=== PATIENT | male | born 1945 | race Caucasian/White ===

== ENCOUNTER 2017-08-17 13:29 | Outpatient (CLI) | payer OTHER ==
[2017-08-17 13:49] LABS: BASOPHILS % 0.5 (0.0-1.5); EOSINOPHILS % 3.1 % (0.0-6.8); MEAN CORPUSCULAR HEMOGLOBIN 28.5 pg (28.0-34.0); MEAN CORPUSCULAR VOLUME 84.8 fl (80.0-100.0); MONOCYTES % 6.3 % (0.0-11.0); NEUTROPHILS # 3.5 # k/uL (1.4-7.7)
[2017-08-17 14:24] LABS: eGFR (African) > 60; eGFR (Non-African) > 60
== END 2017-08-17 14:05 ==
LOC: LAB 13:29
PROVIDERS: ATTEND Internal Medicine
DX: E55.9 Vitamin D deficiency, unspecified (principal); E78.5 Hyperlipidemia, unspecified; Z79.01 Long term (current) use of anticoagulants
CPT/HCPCS: 36415; 80053; 80061; 82306; 85025

== ENCOUNTER 2017-12-06 10:14 | Outpatient (CLI) | payer OTHER | END 2017-12-06 10:15 | LOC: LAB 10:14 | PROVIDERS: ATTEND Family Medicine | DX: I63.9 Cerebral infarction, unspecified (principal) | CPT/HCPCS: 36415; 85610 ==

== ENCOUNTER 2018-01-12 10:48 | Outpatient (CLI) | payer OTHER | END 2018-01-12 10:50 | LOC: LAB 10:48 | PROVIDERS: ATTEND Family Medicine | DX: I63.9 Cerebral infarction, unspecified (principal) | CPT/HCPCS: 36415; 85610 ==

== ENCOUNTER 2018-02-22 10:07 | Outpatient (CLI) | payer OTHER | END 2018-02-22 10:10 | LOC: LAB 10:07 | PROVIDERS: ATTEND Family Medicine | DX: I63.9 Cerebral infarction, unspecified (principal) | CPT/HCPCS: 36415; 85610 ==

== ENCOUNTER 2018-04-06 09:13 | Outpatient (CLI) | payer OTHER | END 2018-04-06 09:15 | LOC: LAB 09:13 | PROVIDERS: ATTEND Family Medicine | DX: I63.9 Cerebral infarction, unspecified (principal) | CPT/HCPCS: 36415; 85610 ==

== ENCOUNTER 2018-05-22 11:35 | Outpatient (CLI) | payer OTHER | END 2018-05-22 11:40 | LOC: LAB 11:35 | PROVIDERS: ATTEND Family Medicine | DX: I63.9 Cerebral infarction, unspecified (principal) | CPT/HCPCS: 36415; 85610 ==

== ENCOUNTER 2018-06-19 12:00 | Outpatient (CLI) | payer OTHER | END 2018-06-19 12:02 | LOC: LAB 12:00 | PROVIDERS: ATTEND Family Medicine | DX: I63.9 Cerebral infarction, unspecified (principal) | CPT/HCPCS: 36415; 85610 ==

== ENCOUNTER 2018-08-04 09:21 | Outpatient (CLI) | payer OTHER ==
[2018-08-04 10:07] LABS: eGFR (Non-African) > 60
== END 2018-08-04 09:22 ==
LOC: LAB 09:21
PROVIDERS: ATTEND Family Medicine
DX: E78.5 Hyperlipidemia, unspecified (principal); Z00.00 Encounter for general adult medical examination without abnormal findings; I63.9 Cerebral infarction, unspecified; Z86.73 Personal history of transient ischemic attack (TIA), and cerebral infarction without residual deficits
CPT/HCPCS: 36415; 80053; 80061; 85610

== ENCOUNTER 2018-08-07 10:20 | Outpatient (CLI) | payer OTHER | END 2018-08-07 10:21 | LOC: LAB 10:20 | PROVIDERS: ATTEND Family Medicine | DX: I63.9 Cerebral infarction, unspecified (principal) | CPT/HCPCS: 36415; 85610 ==

== ENCOUNTER 2018-09-13 10:29 | Outpatient (CLI) | payer OTHER | END 2018-09-13 10:32 | LOC: LAB 10:29 | PROVIDERS: ATTEND Family Medicine | DX: I63.9 Cerebral infarction, unspecified (principal) | CPT/HCPCS: 36415; 85610 ==

== ENCOUNTER 2018-10-06 10:53 | Outpatient (CLI) | payer OTHER | END 2018-10-06 10:54 | LOC: LAB 10:53 | PROVIDERS: ATTEND Family Medicine | DX: I63.9 Cerebral infarction, unspecified (principal) | CPT/HCPCS: 36415; 85610 ==

== ENCOUNTER 2018-11-10 09:50 | Outpatient (CLI) | payer OTHER | END 2018-11-10 09:52 | LOC: LAB 09:50 | PROVIDERS: ATTEND Family Medicine | DX: I63.9 Cerebral infarction, unspecified (principal) | CPT/HCPCS: 36415; 85610 ==

== ENCOUNTER 2018-12-06 10:47 | Outpatient (CLI) | payer OTHER | END 2018-12-06 10:50 | LOC: LAB 10:47 | PROVIDERS: ATTEND Family Medicine | DX: I63.9 Cerebral infarction, unspecified (principal) | CPT/HCPCS: 36415; 85610 ==

== ENCOUNTER 2018-12-19 09:43 | Outpatient (CLI) | payer OTHER | END 2018-12-19 09:45 | LOC: LAB 09:43 | PROVIDERS: ATTEND Family Medicine | DX: I63.9 Cerebral infarction, unspecified (principal) | CPT/HCPCS: 36415; 85610 ==

== ENCOUNTER 2019-02-16 09:30 | Outpatient (CLI) | payer OTHER | END 2019-02-16 09:35 | disposition home or self-care (01) | LOC: LAB 09:30 | PROVIDERS: ATTEND Family Medicine | DX: I63.9 Cerebral infarction, unspecified (principal) | CPT/HCPCS: 36415; 85610 ==

== ENCOUNTER 2019-05-08 10:41 | Outpatient (CLI) | payer OTHER | END 2019-05-08 10:43 | LOC: LAB 10:41 | PROVIDERS: ATTEND Family Medicine | DX: I63.9 Cerebral infarction, unspecified (principal) | CPT/HCPCS: 36415; 85610 ==

== ENCOUNTER 2019-06-07 11:13 | Outpatient (CLI) | payer OTHER | END 2019-06-07 11:25 | LOC: LAB 11:13 | PROVIDERS: ATTEND Family Medicine | DX: I63.9 Cerebral infarction, unspecified (principal) | CPT/HCPCS: 36415; 85610 ==

== ENCOUNTER 2019-07-23 11:07 | Outpatient (CLI) | payer OTHER | END 2019-07-23 11:12 | LOC: LAB 11:07 | PROVIDERS: ATTEND Family Medicine | DX: I63.9 Cerebral infarction, unspecified (principal) | CPT/HCPCS: 36415; 85610 ==

== ENCOUNTER 2019-09-19 10:23 | Outpatient (CLI) | payer OTHER | END 2019-09-19 10:30 | LOC: LAB 10:23 | PROVIDERS: ATTEND Family Medicine | DX: I63.9 Cerebral infarction, unspecified (principal) | CPT/HCPCS: 36415; 85610 ==